=== PATIENT | male | born 1930 | race Caucasian/White ===

== ENCOUNTER 2017-07-11 10:50 | Emergency (ER) | payer OTHER, MEDICARE ==
[2017-07-11 11:00] VITALS: BMI 22.1
--- NOTE | 2017-07-11 11:40 | DR.CP ---
HPI - Time Seen Time seen: 10:25 - PCP Primary Care Physician: JANET ALLEN - HPI Comment HPI Comment: 1) Cold, cough, nasal congestion. 2) some confusion - Complaint Chief Complaint Doctor Comments: 1) He was noted with a dry cough since yesterday. He has had nasal congestion with colored drainage. There has been no fever but he felt cold yesterday. He has been using oral Cipro and Tussin for this symptoms. 2) His noted he seems a bit confused today. He did not know where he was at. His gait is slow, almost shuffling. General weakness. 3) Urinary frequency but no dysuria. Chief Complaint:: PT C/O THAT HE IS CONFUSED, WEAK , CCC , AND HIS BALANCE IS OFF.. Self Treatment fo Chief Complaint: PT WAS EATING TOAST AND THERE WAS NONE IN HIS HAND , PT DID NOT KNOW WHERE HE WAS AT .. - Reviewed Nurses Notes Review: Yes - Source History Provided: Patient - Mode of Arrival Mode of Arrival: Wheelchair - Timing Onset of Chief Complaint: 07/10/17 PMH - PMH Past Medical History: Yes Past Medical History: Alzheimers, Dyslipidemia, GERD, Hypertension Past Surgical History: Yes Surgical History: Abdominal Surgery - Family History History of Family Medical Conditions: Yes - Social History Does patient currently use any type of tobacco product: No Have you used tobacco products in the last 12 months: No Type of Tobacco Use: None Does any household member use tobacco: No Alcohol Use: None Do you use any recreational Drugs:: No Lives With: Family Lives Where: Home - infectious screening In the last 2 months have you had wt loss of >10#?: NO Have you had fever, night sweats or hemotysis?: No Have you traveled outside the country in the last 6 months?: No Isolation: Standard ROS - Review of Systems Constitutional: Chills, Weakness (b ) Eyes: No Symptoms Reported ENTM: Nose Discharge, Nose Congestion Respiratoy: Non-Productive Cough, Dry Cough Cardiovascular: No Symptoms Reported Gastrointestinal/Abdominal: No Symptoms Reported Genitourinary: Frequency Neurological: Other (some confusion earlier today) Musculoskeletal: No Symptoms Reported Integumentary: No Symptoms Reported Hematologic/Lymphatic: No Symptoms Reported Endocrine: No Symptoms Reported Psychiatric: No Symptoms Reported PE - Vitals Vitals: Temperature 98.2 F Pulse Rate 82 Respiratory Rate 18 Blood Pressure [Right Arm] 153/79 Blood Pressure 138/82 O2 Sat by Pulse Oximetry 98 - General Limitations: No Limitations General Appearance: Alert, Other (muscle wasting) - Head Head Exam: Normal Inspection - Eyes Eye exam: Normal Appearance, PERRL, EOMI - ENT ENT Exam: Normal Exam, Normal Oropharynx, Normal External Ear Exam, Mucous Membranes Moist - Chest Chest Inspection: Normal Inspection, Symmetric Chest Wall Rise - Respiratory Respiratory Exam: Normal Lung Sounds Bilat Respiratory Exam: Bilateral Clear to Auscultation - Cardiovascular Cardiovascular Exam: Regular Rate, Normal Rhythm Pulse: Normal Edema: Normal - Abdominal Exam Abdominal Exam: Normal Inspection, Normal Bowel Sounds, Soft - Extremities Extremities Exam: Normal Inspection - Back Back Exam: Normal Inspection - Neurologic Neurological Exam: Alert, Oriented X3 - Psychiatric Psychiatric Exam: Normal Affect, Normal Mood - Skin Skin Exam: Warm, Dry, Intact, Normal Color ROR - Labs Reviewed Result Diagrams: 07/11/17 11:50 07/11/17 11:50 Laboratory: WBC 4.5 X10^3/uL (3.6-10.0) 07/11/17 11:50 RBC 4.32 X10^6/uL (4.7-6.0) L 07/11/17 11:50 Hgb 14.8 g/dL (13.5-18.0) 07/11/17 11:50 Hct 42.5 % (42.0-54.0) 07/11/17 11:50 MCV 98.4 fL (80.0-100.0) 07/11/17 11:50 MCH 34.2 pg (27.0-34.0) H 07/11/17 11:50 MCHC 34.7 g/dL (33.0-35.0) 07/11/17 11:50 RDW 12.9 % (11.6-16.5) 07/11/17 11:50 Plt Count 163 X10^3/uL (150.0-450.0) 07/11/17 11:50 MPV 8.4 fL (7.4-11.0) 07/11/17 11:50 Neut % 69.6 % (42.0-75.0) 07/11/17 11:50 Lymph % 12.6 % (21.0-51.0) L 07/11/17 11:50 [place] % 15.4 % (0.0-13.0) H 07/11/17 11:50 Eos % 1.3 % (0.9-2.9) 07/11/17 11:50 Baso % 1.1 % (0.2-1.0) H 07/11/17 11:50 Neut # 3.1 x10^3/uL (2.2-4.8) 07/11/17 11:50 Lymph # 0.6 X10^3/uL (1.3-2.9) L 07/11/17 11:50 [place] # 0.7 x10^3/uL (0.3-0.8) 07/11/17 11:50 Eos # 0.1 x10^3/uL (0.0-0.2) 07/11/17 11:50 Baso # 0.1 X10^3/uL (0.0-0.1) 07/11/17 11:50 Absolute Nucleated RBC 0.1 /100WBC 07/11/17 11:50 Sodium 135 mmol/L (136-145) L 07/11/17 11:50 Corrected Sodium TNP 07/11/17 11:50 Potassium 4.3 mmol/L (3.5-5.1) 07/11/17 11:50 Chloride 100 mmol/L (98-107) 07/11/17 11:50 Carbon Dioxide 32.5 mmol/L (21-32) H 07/11/17 11:50 BUN 20 mg/dL (7-18) H 07/11/17 11:50 Creatinine 1.35 mg/dL (0.70-1.30) H 07/11/17 11:50 Est GFR (MDRD) Af Amer > 60 (>60) 07/11/17 11:50 Est GFR (MDRD) Non-Af 53 (>60) L 07/11/17 11:50 Glucose 91 mg/dL (65-99) 07/11/17 11:50 Calcium 8.9 mg/dL (8.5-10.1) 07/11/17 11:50 Corrected Calcium 9.5 mg/dL (8.5-10.1) 07/11/17 11:50 Total Bilirubin 0.60 mg/dL (0.2-1.0) 07/11/17 11:50 AST 24 Units/L (15-37) 07/11/17 11:50 ALT 20 Units/L (12-78) 07/11/17 11:50 Alkaline Phosphatase 75 Units/L (46-116) 07/11/17 11:50 Total Protein 6.9 g/dL (6.4-8.2) 07/11/17 11:50 Albumin 3.2 g/dL (3.4-5.0) L 07/11/17 11:50 Globulin 3.7 g/dL (2.5-4.5) 07/11/17 11:50 Albumin/Globulin Ratio 0.9 Ratio (1.1-2.1) L 07/11/17 11:50 TSH 3rd Generation 0.694 uIU/mL (0.358-3.74) 07/11/17 11:50 Specimen Type Clean catch urine 07/11/17 12:28 Urine Color Yellow (YELLOW) 07/11/17 12:28 Urine Appearance Clear (CLEAR) 07/11/17 12:28 Urine pH 6.0 (5.0 - 8.0) 07/11/17 12:28 Ur Specific [place] 1.010 (1.000-1.030) 07/11/17 12:28 Urine Protein Negative (NEGATIVE) 07/11/17 12:28 Urine Glucose (UA) Negative (NEGATIVE) 07/11/17 12:28 Urine Ketones Negative (NEGATIVE) 07/11/17 12:28 Urine Occult Blood 3+ (NEGATIVE) 07/11/17 12:28 Urine Nitrite Negative (NEGATIVE) 07/11/17 12:28 Urine Bilirubin Negative (NEGATIVE) 07/11/17 12:28 Urine Urobilinogen Normal (NORMAL) 07/11/17 12:28 Ur Leukocyte Esterase 1+ (NEGATIVE) 07/11/17 12:28 Urine RBC 0-1 /HPF (NEGATIVE) 07/11/17 12:28 Urine WBC 0-3 /HPF (NEGATIVE) 07/11/17 12:28 Ur Squamous Epith Cells Few /HPF (NEGATIVE) 07/11/17 12:28 Urine Bacteria Negative /HPF (NEGATIVE) 07/11/17 12:28 Ur Culture Indicated? No/not indicated 07/11/17 12:28 - Diagnosis Discharge Problem: Weakness, Confusion, Bronchitis - Discharge Plan Disposition: 09 ADMITTED INPATIENT Condition: Stable - Follow ups/Referrals Follow ups/Referrals: Evaristo Thomas [Primary Care Provider] - 3 days - Instructions
[2017-07-11 12:03] LABS: BASOPHILS # (AUTO) 0.1 X10^3/uL (0.0-0.1); BASOPHILS % (AUTO) 1.1 % (0.2-1.0); EOSINOPHILS # (AUTO) 0.1 x10^3/uL (0.0-0.2); EOSINOPHILS % (AUTO) 1.3 % (0.9-2.9); HEMATOCRIT 42.5 % (42.0-54.0); HEMOGLOBIN 14.8 g/dL (13.5-18.0); LYMPHOCYTES # (AUTO) 0.6 X10^3/uL (1.3-2.9); LYMPHOCYTES % (AUTO) 12.6 % (21.0-51.0); MEAN CORPUSCULAR HEMOGLOBIN 34.2 pg (27.0-34.0); MEAN CORPUSCULAR HGB CONC 34.7 g/dL (33.0-35.0); MEAN CORPUSCULAR VOLUME 98.4 fL (80.0-100.0); MEAN PLATELET VOLUME 8.4 fL (7.4-11.0); MONOCYTES # (AUTO) 0.7 x10^3/uL (0.3-0.8); MONOCYTES % (AUTO) 15.4 % (0.0-13.0); NEUTROPHILS # (AUTO) 3.1 x10^3/uL (2.2-4.8); NEUTROPHILS % (AUTO) 69.6 % (42.0-75.0); PLATELET COUNT 163 X10^3/uL (150.0-450.0); RED BLOOD COUNT 4.32 X10^6/uL (4.7-6.0); RED CELL DISTRIBUTION WIDTH 12.9 % (11.6-16.5); WHITE BLOOD COUNT 4.5 X10^3/uL (3.6-10.0)
[2017-07-11 12:19] LABS: ALANINE AMINOTRANSFERASE 20 Units/L (12-78); ALBUMIN 3.2 g/dL (3.4-5.0); ALKALINE PHOSPHATASE 75 Units/L (46-116); ASPARTATE AMINO TRANSFERASE 24 Units/L (15-37); BLOOD UREA NITROGEN 20 mg/dL (7-18); CALCIUM 8.9 mg/dL (8.5-10.1); CARBON DIOXIDE 32.5 mmol/L (21-32); CHLORIDE 100 mmol/L (98-107); COR CA(FOR HYPOALB) 9.5 mg/dL (8.5-10.1); CREATININE 1.35 mg/dL (0.70-1.30); SODIUM 135 mmol/L (136-145); TOTAL PROTEIN 6.9 g/dL (6.4-8.2); TSH (3RD GENERATION) 0.694 uIU/mL (0.358-3.74); eGFR BLACK RACES > 60 (>60); eGFR NON BLACK RACES 53 (>60)
[2017-07-11 12:38] LABS: BILIRUBIN,URINE NEGATIVE (NEGATIVE); BLOOD/HEMOGLOBIN,URINE 3+ (NEGATIVE); GLUCOSE, URINE NEGATIVE (NEGATIVE); KETONES,URINE NEGATIVE (NEGATIVE); LEUKOCYTE ESTERASE ,URINE 1+ (NEGATIVE); NITRITES,URINE NEGATIVE (NEGATIVE); PROTEIN,URINE NEGATIVE (NEGATIVE); UROBILINOGEN,URINE NORMAL (NORMAL)
[2017-07-11 12:48] LABS: APPEARANCE,URINE CLEAR (CLEAR); BACTERIA,URINE NEGATIVE /HPF (NEGATIVE); COLOR,URINE YELLOW (YELLOW); RBC,URINE 0-1 /HPF (NEGATIVE); SQUAMOUS EPITHELIAL CELL,UR FEW /HPF (NEGATIVE)
[2017-07-11] MEDS ORDERED: NS 1000 ML 1,000 ML ONE (13:00)
[2017-07-11] MEDS ORDERED: ROCEPHIN 1 GM IV PREMIX 1 GM/50 ML IV.SOLN. IV ONE (13:01)
[2017-07-11] MEDS ORDERED: ROCEPHIN VIAL 1 GM IM ONE (13:05)
[2017-07-11] MEDS ORDERED: MUCINEX DM PO ONE (13:15)
[2017-07-11] MEDS: NS 1000 ML 1,000 ML IV SCH (13:19)
[2017-07-11] MEDS ORDERED: ROCEPHIN VIAL 1 GM 1 GM in NS 50 ML IV + SPIKE MINIBAG* 50 ML IV ONE (13:20)
--- NOTE | 2017-07-11 13:28 | RAD ---
HISTORY: Confusion, weakness, imbalance. Study: Single-view chest, done portably Comparison: 10/12/2016 Findings: There is [id number] deviation the trachea secondary to aortic uncoiling. There is cardiomegaly. Carmen ngs and pleural spaces are clear. There is evidence of prior rotator cuff tendon repair on the right side. No acute osseous changes are seen. IMPRESSION: Hypertensive configuration. No acute cardiopulmonary disease. Reported By:
--- NOTE | 2017-07-11 14:24 | CT ---
HISTORY: Alzheimer's, hypertension. Study: CT brain without contrast Comparison: 10/12/2016. Technique: Multiple axial images of the brain were obtained from the skull base to the vertex without administra tion of IV contrast. Coronal and sagittal images are also reviewed. Dose reduction techniques utilize d automatic exposure control. Findings: No acute intraparenchymal hemorrhage or mass can be identified. No extra-axial fluid collections are seen. No alteration in the attenuation of the brain parenchyma can be identified to suggest acute o r subacute ischemic change. The ventricular system is symmetric and nondilated. There is chronic pe riventricular white matter disease observed with generalized cerebral cortical atrophy. There are sma ll air-fluid levels present within the maxillary sinuses bilaterally compatible with sinusitis. IMPRESSION: 1. No acute intracranial process can be identified. 2. 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 3. There are again changes of generalized cerebral cortical atrophy. 4. Small air-fluid levels indicating acute bilateral maxillary sinusitis. Reported By:
[2017-07-11] MEDS ORDERED: ROCEPHIN 1 GM IV PREMIX 1 GM/50 ML IV.SOLN. IV SCH (15:00)
[2017-07-11] MEDS: ROCEPHIN 1 GM IV PREMIX 1 GM/50 ML IV.SOLN. IV SCH (16:47)
[2017-07-11] MEDS ORDERED: TYLENOL 325 MG TAB PO PRN (16:51)
[2017-07-11] MEDS ORDERED: LOVENOX INJ 40 MG SYR SC ONE (17:12)
[2017-07-11] MEDS ORDERED: LEVAQUIN PREMIX IV 500 MG 500 MG/100 ML BAG IV ONE (17:12)
[2017-07-11] MEDS: LOVENOX INJ 40 MG SYR SC SCH (17:40)
[2017-07-11] MEDS: LEVAQUIN PREMIX IV 500 MG 500 MG/100 ML BAG IV SCH (17:40)
[2017-07-11] MEDS ORDERED: ULTRAM PO PRN (18:09)
[2017-07-11] MEDS: COLACE CAP 100 MG PO SCH ×2 (18:22→21:13)
[2017-07-11] MEDS ORDERED: ROCEPHIN VIAL 1 GM 1 GM in NS 50 ML IV + SPIKE MINIBAG* 50 ML IV SCH (21:00)
[2017-07-11] MEDS: MILK OF MAGNESIA PO SCH (21:13)
[2017-07-11] MEDS: LIPITOR TAB 40 MG PO SCH (21:13)
[2017-07-11] MEDS: MUCINEX DM PO SCH (21:13)
[2017-07-12] MEDS: NS 1000 ML 1,000 ML IV SCH ×3 (02:04→15:02)
[2017-07-12 06:37] LABS: BASOPHILS % (AUTO) 0.7 % (0.2-1.0); EOSINOPHILS % (AUTO) 0.2 % (0.9-2.9); HEMATOCRIT 39.7 % (42.0-54.0); HEMOGLOBIN 13.9 g/dL (13.5-18.0); LYMPHOCYTES # (AUTO) 0.7 X10^3/uL (1.3-2.9); LYMPHOCYTES % (AUTO) 12.8 % (21.0-51.0); MEAN CORPUSCULAR VOLUME 97.4 fL (80.0-100.0); MONOCYTES # (AUTO) 0.8 x10^3/uL (0.3-0.8); MONOCYTES % (AUTO) 15.4 % (0.0-13.0); NEUTROPHILS # (AUTO) 3.9 x10^3/uL (2.2-4.8); NEUTROPHILS % (AUTO) 70.9 % (42.0-75.0); PLATELET COUNT 146 X10^3/uL (150.0-450.0); RED BLOOD COUNT 4.07 X10^6/uL (4.7-6.0); RED CELL DISTRIBUTION WIDTH 12.8 % (11.6-16.5); WHITE BLOOD COUNT 5.5 X10^3/uL (3.6-10.0)
[2017-07-12 06:42] LABS: ALANINE AMINOTRANSFERASE 20 Units/L (12-78); ALBUMIN 2.7 g/dL (3.4-5.0); ALKALINE PHOSPHATASE 64 Units/L (46-116); ASPARTATE AMINO TRANSFERASE 27 Units/L (15-37); BLOOD UREA NITROGEN 21 mg/dL (7-18); CALCIUM 7.9 mg/dL (8.5-10.1); CARBON DIOXIDE 27.5 mmol/L (21-32); CHLORIDE 100 mmol/L (98-107); COR CA(FOR HYPOALB) 8.9 mg/dL (8.5-10.1); CREATININE 1.16 mg/dL (0.70-1.30); SODIUM 134 mmol/L (136-145); TOTAL PROTEIN 6.1 g/dL (6.4-8.2); eGFR BLACK RACES > 60 (>60); eGFR NON BLACK RACES > 60 (>60)
[2017-07-12 06:49] LABS: AMMONIA < 10 umol/L (11-32)
--- NOTE | 2017-07-12 08:37 | RAD ---
HISTORY: Elevated temperature, coughing Study: Single-view chest, done portably Comparison: 07/11/2017. Findings: Trachea is midline. There is cardiomegaly with aortic uncoiling. Lungs and pleural spaces are clear. Osseous structures are intact. There is evidence of prior rotator cuff tendon repair on the right. IMPRESSION: Hypertensive configuration without acute abnormality. Reported By:
[2017-07-12] MEDS: LEVAQUIN PREMIX IV 500 MG 500 MG/100 ML BAG IV SCH (08:40)
[2017-07-12] MEDS: MUCINEX DM PO SCH ×2 (08:40→20:57)
[2017-07-12] MEDS: MOBIC TAB 15 MG PO SCH (08:40)
[2017-07-12] MEDS: ROCEPHIN 1 GM IV PREMIX 1 GM/50 ML IV.SOLN. IV SCH ×2 (08:40→20:57)
[2017-07-12] MEDS: LOVENOX INJ 40 MG SYR SC SCH (08:53)
[2017-07-12] MEDS: XALATAN EACHEYE SCH (08:55)
[2017-07-12] MEDS: MILK OF MAGNESIA PO SCH ×2 (08:55→20:57)
[2017-07-12] MEDS: TIMOPTIC 0.5% EYE DROPS EACHEYE SCH ×2 (09:00→11:14)
[2017-07-12] MEDS: LIPITOR TAB 40 MG PO SCH (20:57)
[2017-07-12] MEDS: COLACE CAP 100 MG PO SCH (20:57)
[2017-07-13] MEDS: NS 1000 ML 1,000 ML IV SCH ×2 (02:49→04:46)
[2017-07-13 05:18] LABS: AMMONIA < 10 umol/L (11-32)
[2017-07-13 05:26] LABS: ALANINE AMINOTRANSFERASE 22 Units/L (12-78); ALBUMIN 2.6 g/dL (3.4-5.0); ALKALINE PHOSPHATASE 59 Units/L (46-116); ASPARTATE AMINO TRANSFERASE 32 Units/L (15-37); BLOOD UREA NITROGEN 20 mg/dL (7-18); CALCIUM 7.7 mg/dL (8.5-10.1); CARBON DIOXIDE 27.3 mmol/L (21-32); CHLORIDE 102 mmol/L (98-107); COR CA(FOR HYPOALB) 8.8 mg/dL (8.5-10.1); CREATININE 1.33 mg/dL (0.70-1.30); SODIUM 136 mmol/L (136-145); TOTAL PROTEIN 5.9 g/dL (6.4-8.2); eGFR BLACK RACES > 60 (>60); eGFR NON BLACK RACES 54 (>60)
[2017-07-13 05:33] LABS: BASOPHILS # (AUTO) 0.1 X10^3/uL (0.0-0.1); EOSINOPHILS # (AUTO) 0.1 x10^3/uL (0.0-0.2); HEMATOCRIT 39.6 % (42.0-54.0); HEMOGLOBIN 13.7 g/dL (13.5-18.0); LYMPHOCYTES # (AUTO) 0.8 X10^3/uL (1.3-2.9); LYMPHOCYTES % (AUTO) 25.4 % (21.0-51.0); MEAN CORPUSCULAR HGB CONC 34.6 g/dL (33.0-35.0); MEAN CORPUSCULAR VOLUME 98.4 fL (80.0-100.0); MEAN PLATELET VOLUME 8.8 fL (7.4-11.0); MONOCYTES # (AUTO) 0.5 x10^3/uL (0.3-0.8); MONOCYTES % (AUTO) 16.3 % (0.0-13.0); NEUTROPHILS # (AUTO) 1.7 x10^3/uL (2.2-4.8); NEUTROPHILS % (AUTO) 52.3 % (42.0-75.0); PLATELET COUNT 144 X10^3/uL (150.0-450.0); RED BLOOD COUNT 4.03 X10^6/uL (4.7-6.0); WHITE BLOOD COUNT 3.3 X10^3/uL (3.6-10.0)
[2017-07-13] MEDS: MUCINEX DM PO SCH (08:56)
[2017-07-13] MEDS: ROCEPHIN 1 GM IV PREMIX 1 GM/50 ML IV.SOLN. IV SCH (08:56)
[2017-07-13] MEDS: LEVAQUIN PREMIX IV 500 MG 500 MG/100 ML BAG IV SCH (08:57)
[2017-07-13] MEDS: LOVENOX INJ 40 MG SYR SC SCH (08:57)
[2017-07-13] MEDS: MILK OF MAGNESIA PO SCH (10:56)
[2017-07-13] MEDS: XALATAN EACHEYE SCH ×2 (11:20→11:25)
[2017-07-13] MEDS: TIMOPTIC 0.5% EYE DROPS EACHEYE SCH (11:20)
[2017-07-13] MEDS: MOBIC TAB 15 MG PO SCH (11:21)
[2017-07-13] MEDS ORDERED: LEVAQUIN TAB 250 MG ONE (15:47)
[2017-07-13 17:10] VITALS: BP 135/71
== END 2017-07-13 16:10 | disposition home or self-care (01) ==
LOC: ER 11:04 → MED/SURG 14:20
PROVIDERS: ADMIT Internal Medicine; ATTEND Internal Medicine
DX: R41.82 Altered mental status, unspecified (principal); J20.8 Acute bronchitis due to other specified organisms; R53.1 Weakness; J01.00 Acute maxillary sinusitis, unspecified; R26.89 Other abnormalities of gait and mobility; E78.2 Mixed hyperlipidemia; K21.9 Gastro-esophageal reflux disease without esophagitis; I10 Essential (primary) hypertension; G30.8 Other Alzheimer's disease; F02.80 Dementia in other diseases classified elsewhere, unspecified severity, without behavioral disturbance, psychotic disturbance, mood disturbance, and anxiety; Z66 Do not resuscitate
CPT/HCPCS: 36415; 70450; 71010; 80053; 81001; 82140; 84443; 85025; 87040; 87086; 93005; 96365; 96367; 96374; 96375; 99284; A4222; G0378; J0696; J1650; J1956

== ENCOUNTER → 2017-12-02 | Outpatient (CLI) | payer OTHER, MEDICARE ==
--- NOTE | 2017-12-02 16:00 | CT ---
Exam: Head CT without contrast History: 87-year-old male with dementia. Hypertension. Comparison: Previous head CT from 07/11/2017. Findings: Axial imaging was performed from the vertex to the base the skull without intravenous contr ast being administered. Subsequently sagittal and coronal reformations were generated. Generalized age related atrophic changes are again seen. However no intracranial hemorrhage, extracer ebral fluid collections, or intracranial mass is identified. Ventricles are symmetric in size and pos ition with no mass effect seen. Patchy low density in a periventricular white matter distribution mos t likely reflect chronic small vessel ischemia. On the bone windows, no acute abnormality is seen. Visualized aspect of the paranasal sinuses and mas toid air cells are clear. IMPRESSION: No acute intracranial abnormality is seen on this exam. Age related atrophic change and patchy areas of chronic small vessel ischemia are again identified in a periventricular white matter distribution Reported By:
== END ==
LOC: RAD 14:20
PROVIDERS: ATTEND Internal Medicine
DX: R44.2 Other hallucinations (principal)
CPT/HCPCS: 70450